=== PATIENT | female | born 1970 | race Caucasian/White ===

== ENCOUNTER → 2016-06-28 | Outpatient (CLI) | payer BC ==
[~2016-06-28] MED LIST: TEMAZEPAM15 MG PO; ZOFRAN 8MG TABLE8 MG PO
--- NOTE | 2016-07-03 10:33 | RADIOLOGY REPORT PS360 ---
MRI-LOW EXT ANY JOINT W/O-RT MRI right foot ORDERING PHYSICIAN : JAIDEN SANTOS PATIENT AGE: 46 years GENDER: Female INDICATION: TEAR ATFLpain primarily is lateral ankle. Ankle sprain one year ago lateral ankle pain with routine foot. Feels something pull pain worse when on feet for long period of time TECHNIQUE: Multiplanar multisequence imaging 1.5 T MR FINDINGS Redictation. Initial dictation apparently lost . Anterior talofibular ligament.: I believe the anterior talofibular ligament remainsb and for the most part intact., It is most evident axial image 12. However there is a rather ill-defined bob thickened appearance along its inferior margin of the ATF L, as well as a rather bob appearance throughout the anterior aspect of the ankle this region of the lateral joint.. I suspect reflects fibrosis from prior sprain and injury here.. The ablated the calcaneofibular ligament is faintly seen but also has a progressively Bob appearance towards its inferior aspect. . Progressively grainy appearance inferior to this which suggests that there is been some fibrosis likely from a healing partial tear and sprain. Anterior tibiofibular ligament is intact. Posterior tibio fibular and posterior talofibular ligament intact There is scant increased joint fluid seen at lateral subtalar joint just at the angle of [place] . No associated abnormal bone signal to suggest lateral impingement syndrome. However there is fluid extending posterior to the subtalar joint along and beneath the prominent posterior process of the talus. This then later fluid tracks along the superior margin of the calcaneus. Is also focal fluid surrounding theFHL.. This may reflect some mild residual inflammatory changes at the lateral and posterior ankle. Clinical correlation required I do not see prominent fluid otherwise at subtalar joint otherwise and the subtalar ligaments seem to be grossly intact. Thus would tend to speak against sinus tarsi syndrome The peroneus longus and brevis tendons overall intact. The hernias longus tendon has upper normal signal distally where it turns beneath the calcaneus.-Favor more likely magic angle artifact although difficult to exclude a minor tendinopathy peroneus longus at this region. More proximally is unremarkable.. The peroneus brevis this small and thin distally but seems to be intact. Base of fifth metatarsal unremarkable. IMPRESSION 1. Anterior Talofibular Ligament remains but appears thickened. The inferior ATFL has the most pronounced thickening and wallace appearance. This likely reflects fibrosis from previous injury with fibrosis also seen throughout the anterior joint off of lateral malleolus Similar I believe we identify a remaining fibular calcaneal ligament but it also has a Bob and thickened appearance inferiorly suggesting healing fibrosis from previous injury . No increased fluid signal is seen within these tendons to suggest focal inflammation . 2. Slight increase fluid at the lateral subtalar joint but no associated abnormal bone signal here 3. The fluid at the subtalar joint continues posteriorly surrounding a prominent posterior process of the talus with generous focal fluid surrounding theFHL. Nonspecific observation specifically reflect mild focal inflammation if pain to correlate. .. Most evident along its inferior aspect with slightly wallace appearance throughout the anterior aspect of the ankle joint in this region IMPRESSION:
== END ==
LOC: RAD 14:41
DX: M66.371 Spontaneous rupture of flexor tendons, right ankle and foot (principal)